=== PATIENT | female | born 1975 | race Caucasian/White ===

== ENCOUNTER 2022-07-06 07:14 | Emergency (ER) | payer BC, MEDICAID ==
[~2022-07-06] VITALS: Ht 157.5 cm; Wt 81.8 kg
[~2022-07-06 07:14] MED LIST: CHLO10MO PO; CLIN150C8 PO
[2022-07-06 07:32] VITALS: BP 124/82
[2022-07-06 09:09] LABS: URINE HCG NEGATIVE (NEG)
[2022-07-06 09:10] LABS: CLARITY,URINE SLIGHTLY CLOUDY (Clear); COLOR,URINE YELLOW (Yellow); GLUCOSE, URINE NEGATIVE (Neg); KETONES,URINE NEGATIVE (Neg); LEUKOCYTE ESTERASE ,URINE NEGATIVE (Neg); NITRITES, URINE NEGATIVE (Neg); OCCULT BLOOD,URINE NEGATIVE (Neg); PROTEIN,URINE NEGATIVE (Neg); UROBILINOGEN,URINE 0.2 E.U/dL (0.2-1.0)
[2022-07-06 09:27] LABS: UA COLLECTION TYPE CLN CATCH MIDSTREAM
[2022-07-06 09:29] LABS: BACTERIA,URINE 1+ /HPF (Neg); MUCUS STRANDS FEW /LPF (Neg); RBC,URINE NONE SEEN /HPF (0-2); SQUAMOUS EPITHELIAL CELL,UR MANY /LPF (FEW); WBC,URINE 0-4 /HPF (0-4)
[2022-07-06] MEDS ORDERED: HYDROcodone/acetaminophen 5mg/325mg tablet PO ONE (09:35)
[2022-07-06] MEDS ORDERED: pantoprazole 40mg Tablet.DR PO ONE (09:35)
[2022-07-06] MEDS ORDERED: mag hydrox/Alum hydrox/simeth 30ml oral suspension PO ONE (09:35)
[2022-07-06] MEDS ORDERED: ondansetron 4mg rapidly disintigrating tab PO ONE (09:35)
[2022-07-06 09:55] LABS: BASOPHILS % (AUTO) 0.6 % (0-1); EOSINOPHILS # (AUTO) 0.2 X10'3 (0-0.9); EOSINOPHILS % (AUTO) 2.4 % (0-6); HEMATOCRIT 37.9 % (35.0-45.0); HEMOGLOBIN 12.4 g/dl (12.0-16.0); LYMPHOCYTES # (AUTO) 2.7 X10'3 (1.1-4.8); LYMPHOCYTES % (AUTO) 38.2 % (21-51); MEAN CORPUSCULAR HEMOGLOBIN 27.5 PG (27.0-31.0); MEAN CORPUSCULAR HGB CONC 32.9 g/dL (33.0-36.5); MEAN CORPUSCULAR VOLUME 83.6 FL (78-98); MEAN PLATELET VOLUME 8.4 FL (7.4-10.4); MONOCYTES # (AUTO) 0.5 X10'3 (0-0.9); MONOCYTES % (AUTO) 6.9 % (2-12); NEUTROPHILS # (AUTO) 3.7 X10'3 (1.8-7.7); NEUTROPHILS % (AUTO) 51.9 % (42-75); PLATELET COUNT 241 X10'3 (140-440); RED BLOOD COUNT 4.53 X10'6 (4.20-5.60); WHITE BLOOD COUNT 7.1 X10'3 (4.5-11.0)
[2022-07-06 10:03] LABS: ALANINE AMINOTRANSFERASE 25 U/L (12-78); ALBUMIN 3.6 G/DL (3.4-5.0); ALBUMIN/GLOBULIN RATIO 1.2 (1.1-1.5); ALKALINE PHOSPHATASE 46 IU/L (46-116); ANION GAP 6 (8-16); ASPARTATE AMINO TRANSFERASE 16 U/L (10-37); BILIRUBIN,TOTAL 0.3 MG/DL (0.1-1.0); BLOOD UREA NITROGEN 7 MG/DL (7-18); CHLORIDE 105 MMOL/L (99-107); CREATININE 0.78 MG/DL (0.40-0.90); GLUCOSE 106 MG/DL (70-104); LIPASE 93 U/L (73-393); SODIUM 138 MMOL/L (135-145); TOTAL CARBON DIOXIDE 27.4 MMOL/L (24-32); TOTAL PROTEIN 6.7 G/DL (6.4-8.2); eGFR 79 ML/MIN
[2022-07-06 10:12] LABS: CALCIUM 8.1 MG/DL (8.5-10.1)
[2022-07-06] MEDS ORDERED: iohexol 300mg/ml 100ml inj. ONE (11:16)
== END 2022-07-06 12:48 | disposition home or self-care (01) ==
LOC: ER 07:15
DX: R10.11 Right upper quadrant pain (principal); Z88.0 Allergy status to penicillin; Z88.2 Allergy status to sulfonamides; Z79.2 Long term (current) use of antibiotics; Z79.899 Other long term (current) drug therapy
CPT/HCPCS: 36415; 71045; 74177; 80053; 81001; 81025; 83690; 84484; 85025; 99285; J3490; Q9967